=== PATIENT | female | born 1965 | race African-American/Black ===

== ENCOUNTER 2016-07-03 16:15 | Emergency (ER) | payer SELFPAY ==
[~2016-07-03] VITALS: Ht 160 cm; Wt 74.0 kg
[2016-07-03 16:18] VITALS: BP 130/85; PULSE 70; RESP 20; TEMP 97.5; O2SAT 100
[2016-07-03] MEDS ORDERED: SODIUM CHLORIDE 0.9% FLUSH 5 ML FLUSH IVF PRN (16:30)
[2016-07-03 16:38] VITALS: O2SAT 100
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
[2016-07-03] MEDS ORDERED: MORPHINE SULFATE 4 MG/ML INJ IV PUSH ONE (17:00)
[2016-07-03] MEDS ORDERED: ONDANSETRON HCL 4 MG/2 ML VIAL IV PUSH ONE (17:00)
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
[2016-07-03] MEDS ORDERED: CYCL1TAB29 PO (17:59)
[2016-07-03] MEDS ORDERED: NAPR500 PO (17:59)
[2016-07-03] MEDS ORDERED: HYDR-3533 PO (17:59)
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
== END 2016-07-03 18:41 | disposition home or self-care (01) ==
LOC: NEPC 16:15
DX: S02.5XXA Fracture of tooth (traumatic), initial encounter for closed fracture (principal); S50.811A Abrasion of right forearm, initial encounter; S50.812A Abrasion of left forearm, initial encounter; S16.1XXA Strain of muscle, fascia and tendon at neck level, initial encounter; S09.90XA Unspecified injury of head, initial encounter; S00.83XA Contusion of other part of head, initial encounter; V03.00XA Pedestrian on foot injured in collision with car, pick-up truck or van in nontraffic accident, initial encounter; Y93.9 Activity, unspecified; Y92.9 Unspecified place or not applicable; Y99.9 Unspecified external cause status
CPT/HCPCS: 70450; 70486; 71010; 72100; 72125; 73110; 96374; 96375; 99284; J2270; J2405

== ENCOUNTER 2016-10-29 19:55 | Inpatient (IN) | payer SELFPAY ==
[~2016-10-29] VITALS: Ht 160 cm; Wt 71.9 kg
[~2016-10-29 19:55] MED LIST: CYCL1TAB29 PO; HYDR-3533 PO; NAPR500 PO
[2016-10-29 20:01] VITALS: BP 134/87; PULSE 77; RESP 18; O2SAT 100
[2016-10-29 20:11] VITALS: O2SAT 100
[2016-10-29] MEDS ORDERED: SODIUM CHLOR 0.9% 1000 ML INJ 1,000 ML IV ONE (20:15)
[2016-10-29] MEDS ORDERED: NITROGLYCERIN 2% OINT 1 GM PACKET TOPICAL ONE (20:15)
[2016-10-29] MEDS ORDERED: ONDANSETRON HCL 4 MG/2 ML VIAL IV ONE (20:15)
[2016-10-29] MEDS ORDERED: PANTOPRAZOLE INJ 80 MG in SODIUM CHLORIDE 0.9% INJ 35 ML IV ONE (20:15)
--- NOTE | 2016-10-29 20:18 | PD ---
HPI Chief Complaint: Chest Pain Time Seen by Provider: 20:08 Travel History International Travel<30 days: No Contact w/Intl Traveler<30days: No Traveled to known affect area: No History of Present Illness HPI The patient is a 51 year old female who presents to the [facility] emergency department with a history of chest pain that she reports is been coming and going for the last 3 days. The patient reports that the pain is a pressure sensation that radiates to the back and underneath the right breast. The patient reports that the patient has intermittent sharp jabbing sensations associated with this. The patient reports that the pain was 6 out of 10 in severity and now is 5 out of 10 in severity. The patient reports that she has associated shortness of breath. She reports that she's had for the last few months daily vomiting that is blood-tinged. She reports that this happens 3-4 times per day. She reports that she did have 3 episodes of vomiting earlier today. She denies having any diarrhea. She denies having any blood in her stool or black or tarry stools. She reports that she does have a history of anemia thought to be related to a GI bleed that they could not find the source of in the past with endoscopy. She reports that every couple of years she requires a blood transfusion. Her last blood transfusion was a urine ago. The patient is a daily drinker of approximately 5 beers per day. The patient denies any history of hypertension, diabetes mellitus, hyperlipidemia. She does have a family history of myocardial infarction with her mother dying of an NE at 63 years of age. The patient denies any history of smoking. The patient denies taking any [id number] anti-inflammatory pain medications. The patient arrives by ambulance services and was given aspirin 162 mg by mouth 1, nitroglycerin 2 sublingual prior to arrival. The patient denies any recent fevers, cough, congestion, neck pain, abdominal pain, diarrhea, urinary symptoms , or neurologic symptoms. [facility] Past Medical History Narrative Medical The patient's past medical history is significant for intermittent anemia requiring blood transfusions every 2 years, chronic leg swelling, depression. Anemia: Yes (MULTIPLE BLOOD TRANSFUSIONS) Depression: Yes Medical other: Yes (leg swelling) ?: Not Menopausal: Yes Past Surgical History Narrative Surgical The patient's past surgical history is reportedly none. Family History Family Myocardial Infarction: Yes Social History Alcohol Use: Yes (daily 5-6 beers) Tobacco Use: No Substance Use: No Allergies-Medications (Allergen,Severity, Reaction): Coded Allergies: No Known Allergies (Unverified , 10/29/16) Reported Meds & Prescriptions Reported Meds & Active Scripts Active Review of Systems Except as stated in HPI: all other systems reviewed are Neg General / Constitutional: No: Fever Eyes: No: Visual changes HENT: No: Headaches Cardiovascular: Positive: Chest Pain or Discomfort, Dyspnea on exertion Respiratory: No: Shortness of Breath Gastrointestinal: Positive: Nausea, Vomiting, Hematemesis, Indigestion, No: Abdominal Pain, Loss of Appetite Genitourinary: No: Dysuria Musculoskeletal: No: Pain Skin: No Rash Neurologic: No: Weakness Psychiatric: No: Depression Endocrine: No: Polydipsia Hematologic/Lymphatic: No: Easy Bruising Physical Exam Narrative General: The patient is a well-developed well-nourished female in no acute distress. Head and Neck exam: Head is normocephalic atraumatic. Eyes: EOMI, pupils are equal round and reactive to light. Nose: Midline septum with pink mucous membranes Mouth: Dentition unremarkable. Moist mucus membranes. Posterior oropharynx is not erythematous. No tonsillar hypertrophy. Uvula midline. Airway patent. Neck: No palpable lymphadenopathy. No nuchal rigidity. No thyromegaly. Cardiovascular: Regular rate and rhythm without murmurs, gallops, or rubs. Lungs: Clear to auscultation bilaterally. No wheezes, rhonchi, or rales. Abdomen: Soft, without tenderness to palpation in all 4 quadrants of the abdomen. No guarding, rebound, or rigidity. Normal bowel sounds are audible. No tenderness on palpation of McBurney's point. Extremities: No clubbing or cyanosis. The patient has trace pedal edema bilateral lower extremities. 2+ pulses in all 4 extremities. No calf tenderness on palpation. Back: No costovertebral angle tenderness to palpation. Neurologic Exam: Cranial nerves 2-12 were intact on exam. Strength is 5/5 in all 4 extremities. No sensory deficits noted. Skin Exam: No rash noted. Intact skin that is warm and dry. Data Data Last Documented VS Vital Signs Date Time Temp Pulse Resp B/P Pulse Ox O2 Delivery O2 Flow Rate FiO2 10/29/16 22:27 89 18 139/90 100 Room Air Orders Electrocardiogram (10/29/16 20:08) Complete Blood Count With Diff (10/29/16 20:08) Comprehensive Metabolic Panel (10/29/16 20:08) Creatine Kinase (Cpk) (10/29/16 20:08) Ckmb (Isoenzyme) Profile (10/29/16 20:08) Troponin I (10/29/16 20:08) B-Type Natriuretic Peptide (10/29/16 20:08) Prothrombin Time / Inr (Pt) (10/29/16 20:08) Act Partial Throm Time (Ptt) (10/29/16 20:08) Lipase (10/29/16 20:08) Urinalysis - C+S If Indicated (10/29/16 20:08) Magnesium (Mg) (10/29/16 20:08) Chest, Single Ap (10/29/16 20:08) Iv Access Insert/Monitor (10/29/16 20:08) Ecg Monitoring (10/29/16 20:08) Oximetry (10/29/16 20:08) Type And Screen (10/29/16 20:08) Ed Urine Pregnancytest Poc (10/29/16 20:08) Pantoprazole Inj (Protonix Inj) (10/29/16 20:15) Pantoprazole Inj (Protonix Inj) (10/29/16 20:15) Sodium Chlor 0.9% 1000 Ml Inj (Ns 1000 M (10/29/16 20:15) Ondansetron Inj (Zofran Inj) (10/29/16 20:15) Nitroglycerin 2% Oint (Nitroglycerin 2% (10/29/16 20:15) CKMB (10/29/16 20:15) CKMB% (10/29/16 20:15) Vital Signs (Adult) Q4H (10/29/16 22:30) Activity Oob With Assistance (10/29/16 22:30) Tar Heat Exchanger Cleaner / Telemetry .CONTINUOUS (10/29/16 22:30) Diet Npo (10/30/16 Breakfast) Sodium Chloride 0.9% Flush (Ns Flush) (10/29/16 22:30) Sodium Chloride 0.9% Flush (Ns Flush) (10/30/16 09:00) Basic Metabolic Panel (Bmp) (10/30/16 06:00) Complete Blood Count With Diff (10/30/16 06:00) Creatine Kinase (Cpk) (10/30/16 08:00) Troponin I (10/30/16 08:00) Electrocardiogram (10/30/16 02:00) Electrocardiogram (10/30/16 08:00) Case Management Consult (10/29/16 22:30) Naloxone Inj (Narcan Inj) (10/29/16 22:30) Hgb & Hct (10/30/16 06:00) Hgb & Hct (10/30/16 10:00) Hgb & Hct (10/30/16 14:00) Admit Order (Ed Use Only) (10/29/16 22:35) Creatine Kinase (Cpk) (10/30/16 01:59) Troponin I (10/30/16 01:59) Labs Laboratory Tests Test 10/29/16 20:15 White Blood Count 3.5 TH/MM3 Red Blood Count 3.73 MIL/MM3 Hemoglobin 8.5 GM/DL Hematocrit 26.9 % Mean Corpuscular Volume 72.0 FL Mean Corpuscular Hemoglobin 22.7 PG Mean Corpuscular Hemoglobin 31.5 % Concent Red Cell Distribution Width 21.0 % Platelet Count 197 TH/MM3 Mean Platelet Volume 8.9 FL Neutrophils (%) (Auto) 46.4 % Lymphocytes (%) (Auto) 37.4 % Monocytes (%) (Auto) 13.1 % Eosinophils (%) (Auto) 2.0 % Basophils (%) (Auto) 1.1 % Neutrophils # (Auto) 1.6 TH/MM3 Lymphocytes # (Auto) 1.3 TH/MM3 Monocytes # (Auto) 0.5 TH/MM3 Eosinophils # (Auto) 0.1 TH/MM3 Basophils # (Auto) 0.0 TH/MM3 CBC Comment DIFF FINAL Differential Comment Prothrombin Time 11.2 SEC Prothromb Time International 1.0 RATIO Ratio Activated Partial 23.1 SEC Thromboplast Time Sodium Level 140 MEQ/L Potassium Level 3.9 MEQ/L Chloride Level 107 MEQ/L Carbon Dioxide Level 21.9 MEQ/L Anion Gap 11 MEQ/L Blood Urea Nitrogen 7 MG/DL Creatinine 0.84 MG/DL Estimat Glomerular Filtration 87 ML/MIN Rate Random Glucose 87 MG/DL Calcium Level 8.6 MG/DL Magnesium Level 2.2 MG/DL Total Bilirubin 0.2 MG/DL Aspartate Amino Transf 77 U/L (AST/SGOT) Alanine Aminotransferase 44 U/L (ALT/SGPT) Alkaline Phosphatase 47 U/L Total Creatine Kinase 163 U/L Creatine Kinase MB 1.1 NG/ML Troponin I LESS THAN 0.02 NG/ML B-Type Natriuretic Peptide 4 PG/ML Total Protein 8.2 GM/DL Albumin 3.4 GM/DL Lipase 381 U/L Blood Type AB POSITIVE Antibody Screen NEGATIVE Blood Bank Comment MDM Medical Decision Making Medical Screen Exam Complete: Yes Emergency Medical Condition: Yes Medical Record Reviewed: Yes Interpretation(s) Last Impressions Chest X-Ray 10/29/162007 Signed Impressions: Service Date/Time: Saturday, October 29, 2016 20:34 - CONCLUSION: Normal examination. Lawrence Kevin Jr., MD Differential Diagnosis Acute coronary syndrome, versus symptomatic anemia, versus pneumothorax, versus pneumonia, versus acid reflux, versus pancreatitis Narrative Course During the course of the patients emergency department visit, the patients history, examination, and differential diagnosis were reviewed with the patient. The patient had IV access obtained and blood work sent for analysis. The patient was placed on a hand plug shaper with oximetry and blood pressure monitoring. An EKG was done on arrival. The patient's EKG shows a sinus rhythm heart rate of 74, no acute ST segment changes. No ST segment elevation or depression. QRS duration is 76 ms, QTC is 411 ms. The patient was initially provided an inch of Nitropaste to the chest wall. The patient was given Zofran 4 mg IV, normal saline 1 L IV fluid bolus, Protonix 80 mg IV followed by a Protonix drip the patient was given aspirin by ambulance services prior to arrival. The patients laboratory studies were reviewed and remarkable for a white count of 3.5, hemoglobin 8.5, platelets 197 with 13.1 monocytes, CMP is remarkable for a GFR of 87, AST 77, cardiac enzymes within normal limits, BNP 4, lipase 381 , PT 11.2, PTT 23.1, urinalysis shows moderate leukocyte esterase, only 1 WBC, culture not indicated. Radiology studies were reviewed and remarkable for a chest x-ray that shows no acute abnormality. The patient was agreeable with plan to proceed with admission for hematemesis, anemia, and chest pain rule out myocardial infarction The patients results were discussed with the patient, including the plan of care. I explained that further testing and/ or monitoring is indicated based on the patients history, examination, and/ or laboratory findings. Therefore, I recommended admission for additional evaluation. The patient expressed understanding and was agreeable with this plan. The patient was admitted to the hospital in guarded condition and [facility] Physician Communication Physician Communication The patient's case was discussed with Dr. Wei did agree to admit the patient for further evaluation and treatment at this time. Diagnosis Primary Impression: Hematemesis Qualified Code: K92.0 - Hematemesis with nausea Additional Impressions: Chest pain, rule out acute myocardial infarction Anemia Qualified Code: D50.9 - Iron deficiency anemia, unspecified iron deficiency anemia type Admitting Information Admitting Physician Requests: Inez Simmons MD October 29, 2016 20:17
[2016-10-29 20:31] LABS: AUTOMATED NEUTROPHIL # 1.6 TH/MM3 (1.8-7.7); BASOPHIL % 1.1 % (0.0-2.0); EOSINOPHIL # 0.1 TH/MM3 (0-0.4); HEMATOCRIT 26.9 % (35.0-46.0); HEMO FLAGS DIFF FINAL; LYMPH % 37.4 % (9.0-44.0); LYMPHOCYTE # 1.3 TH/MM3 (1.0-4.8); MEAN CORPUSCULAR HEMOGLOBIN 22.7 PG (27.0-34.0); MEAN CORPUSCULAR HGB CONC 31.5 % (32.0-36.0); MONO % 13.1 % (0.0-8.0); NEUT % 46.4 % (16.0-70.0); PLATELET COUNT 197 TH/MM3 (150-450); RED BLOOD COUNT 3.73 MIL/MM3 (4.00-5.30); WHITE BLOOD COUNT 3.5 TH/MM3 (4.0-11.0)
[2016-10-29 20:40] LABS: APTT (PATIENT) 23.1 SEC (24.3-30.1); PROTHROMBIN TIME - PATIENT 11.2 SEC (9.8-11.6)
--- NOTE | 2016-10-29 20:50 | RADRPT ---
EXAM DATE/TIME: 10/29/2016 20:34 [facility] COMPARISON: CHEST SINGLE AP, July 03, 2016, 17:06. INDICATIONS : Right chest pain. MEDICAL HISTORY : Anemia SURGICAL HISTORY : None. ENCOUNTER: Initial ACUITY: 3 days PAIN SCORE: 1/10 LOCATION: Right chest FINDINGS: A single view of the chest demonstrates the lungs to be symmetrically aerated without evidence of mas s, infiltrate or effusion. The cardiomediastinal contours are unremarkable. Osseous structures are intact. CONCLUSION: Normal examination. Lawrence Kevin Jr., MD on October 29, 2016 at 20:48 Board Certified Radiologist. This report was verified electronically.
[2016-10-29 20:58] LABS: ALT (GPT) 44 U/L (10-53); ANION GAP 11 MEQ/L (5-15); AST (GOT) 77 U/L (15-37); BICARBONATE 21.9 MEQ/L (21.0-32.0); BLOOD UREA NITROGEN 7 MG/DL (7-18); CHLORIDE 107 MEQ/L (98-107); GLOMERULAR FILTRATION RATE 87 ML/MIN (>89); MAGNESIUM 2.2 MG/DL (1.5-2.5); POTASSIUM 3.9 MEQ/L (3.5-5.1); SODIUM (NA) 140 MEQ/L (136-145)
[2016-10-29 21:02] LABS: ALKALINE PHOSPHATASE 47 U/L (45-117); CREATINE KINASE 163 U/L (26-192); TOTAL BILIRUBIN ADULT 0.2 MG/DL (0.2-1.0)
[2016-10-29 21:14] LABS: CKMB 1.1 NG/ML (0.5-3.6)
[2016-10-29 22:27] VITALS: BP 139/90; PULSE 89; RESP 18; O2SAT 100
[2016-10-29] MEDS: PANTOPRAZOLE INJ 80 MG in SODIUM CHLORIDE 0.9% INJ 100 ML IV SCH (22:27)
[2016-10-29] MEDS ORDERED: SODIUM CHLORIDE 0.9% FLUSH 10 ML FLUSH IV FLUSH PRN (22:30)
[2016-10-29] MEDS ORDERED: NALOXONE HCL 0.4 MG/ML AMP IV PRN (22:30)
[2016-10-30] VITALS (15 sets, daily range): BP systolic 120–167; BP diastolic 72–98; PULSE 52–81; RESP 16–20; TEMP 97.9–98.7; O2SAT 95–100
[2016-10-30 02:16] LABS: AUTOMATED NEUTROPHIL # 1.4 TH/MM3 (1.8-7.7); BASOPHIL % 1.3 % (0.0-2.0); EOSINOPHIL % 1.5 % (0.0-4.0); HEMATOCRIT 25.8 % (35.0-46.0); HEMO FLAGS DIFF FINAL; LYMPHOCYTE # 1.1 TH/MM3 (1.0-4.8); MEAN CELL VOLUME 72.6 FL (80.0-100.0); MEAN CORPUSCULAR HEMOGLOBIN 22.2 PG (27.0-34.0); MEAN CORPUSCULAR HGB CONC 30.6 % (32.0-36.0); MONO % 13.7 % (0.0-8.0); NEUT % 46.5 % (16.0-70.0); PLATELET COUNT 154 TH/MM3 (150-450); RED BLOOD COUNT 3.55 MIL/MM3 (4.00-5.30)
[2016-10-30 02:29] LABS: ANION GAP 8 MEQ/L (5-15); BICARBONATE 24.9 MEQ/L (21.0-32.0); BLOOD UREA NITROGEN 7 MG/DL (7-18); CHLORIDE 109 MEQ/L (98-107); GLOMERULAR FILTRATION RATE 96 ML/MIN (>89); POTASSIUM 3.9 MEQ/L (3.5-5.1); SODIUM (NA) 142 MEQ/L (136-145)
[2016-10-30 02:33] LABS: CREATINE KINASE 140 U/L (26-192)
--- NOTE | 2016-10-30 03:37 | HHI.HP ---
[facility] No Primary Care Physician Admission Diagnosis GI Bleed, CP R/O MS Diagnoses: Chief Complaint: Shortness of breath, chest pain Travel History International Travel<30 Days: No Contact w/Intl Traveler <30 Da: No Traveled to Known Affected Are: No History of Present Illness History from patient, ER physician communication, and review of medical records. Patient is somewhat of a poor historian. At the time of my exam, patient is quite sleepy and has hard time trying to stay awake to talk to me. She also looks to be quite weak and lethargic which might be contributing to her mental status. She reports that she came to the hospital because she was having chest pain with associated shortness of breath. She stated it was going on for a while. Does not specify how long. She reports the pain was mostly midsternal, achy, and worst with exertion. Similarly shortness of breath is also worse with exertion. She denies any prior history of cardiac issues. Denies being a smoker. Not a diabetic. Upon further questioning, patient reported to the ER physician and myself that she has had prior episodes of GI bleeds. She also was reporting of vomiting dark colored fluid in the past 1 month on and off. Denies diarrhea. Denies any melena. She reports that she has had EGDs previously and that the doctors were not able to find the reason for her GI bleeds. However she denies any prior history of colonoscopies. She states that her last EGD was done 2 years ago in [place]. She does report of alcoholism of 6 beers a day. Review of Systems Except as stated in HPI: all other systems reviewed are Neg Past Family Social History Past Medical History blood transfusion 2 yrs ago syncope 2 yrs ago from anemia Past Surgical History None Reported Medications None Allergies: Coded Allergies: No Known Allergies (Unverified , 10/29/16) Family History mom with heart attack Social History Denies smoking/alcohol abuse/drug abuse. Physical Exam Vital Signs Vital Signs Date Time Temp Pulse Resp B/P Pulse Ox O2 Delivery O2 Flow Rate FiO2 10/30/16 01:48 Room Air 10/30/16 00:57 98.2 66 18 131/78 98 10/29/16 22:27 89 18 139/90 100 Room Air 10/29/16 20:11 100 10/29/16 20:01 77 18 134/87 100 Physical Exam GENERAL: This is a well-nourished, well-developed patient, in no apparent distress. SKIN: No rashes, ecchymoses or lesions. Cool and dry. HEAD: Atraumatic. Normocephalic. No temporal or scalp tenderness. EYES: No scleral icterus. No injection or drainage. ENT: Nose without bleeding, purulent drainage or septal hematoma. . Airway patent. NECK: Trachea midline. No JVD CARDIOVASCULAR: Regular rate and rhythm without murmurs, gallops, or rubs. RESPIRATORY: Clear to auscultation. Breath sounds equal bilaterally. No wheezes , rales, or rhonchi. GASTROINTESTINAL: Abdomen soft, non-tender, nondistended. No guarding. MUSCULOSKELETAL: Extremities without clubbing, cyanosis, or edema. No calf tenderness NEUROLOGICAL: Awake and alert. Motor and sensory grossly within normal limits. Normal speech. Laboratory Laboratory Tests Test 10/29/16 10/30/16 20:15 01:59 White Blood Count 3.5 3.0 Red Blood Count 3.73 3.55 Hemoglobin 8.5 7.9 Hematocrit 26.9 25.8 Mean Corpuscular Volume 72.0 72.6 Mean Corpuscular Hemoglobin 22.7 22.2 Mean Corpuscular Hemoglobin 31.5 30.6 Concent Red Cell Distribution Width 21.0 21.0 Platelet Count 197 154 Mean Platelet Volume 8.9 8.0 Neutrophils (%) (Auto) 46.4 46.5 Lymphocytes (%) (Auto) 37.4 37.0 Monocytes (%) (Auto) 13.1 13.7 Eosinophils (%) (Auto) 2.0 1.5 Basophils (%) (Auto) 1.1 1.3 Neutrophils # (Auto) 1.6 1.4 Lymphocytes # (Auto) 1.3 1.1 Monocytes # (Auto) 0.5 0.4 Eosinophils # (Auto) 0.1 0.0 Basophils # (Auto) 0.0 0.0 CBC Comment DIFF FINAL DIFF FINAL Differential Comment Prothrombin Time 11.2 Prothromb Time International 1.0 Ratio Activated Partial 23.1 Thromboplast Time Sodium Level 140 142 Potassium Level 3.9 3.9 Chloride Level 107 109 Carbon Dioxide Level 21.9 24.9 Anion Gap 11 8 Blood Urea Nitrogen 7 7 Creatinine 0.84 0.77 Estimat Glomerular Filtration 87 96 Rate Random Glucose 87 88 Calcium Level 8.6 8.4 Magnesium Level 2.2 Total Bilirubin 0.2 Aspartate Amino Transf 77 (AST/SGOT) Alanine Aminotransferase 44 (ALT/SGPT) Alkaline Phosphatase 47 Total Creatine Kinase 163 140 Creatine Kinase MB 1.1 Troponin I LESS THAN 0.02 LESS THAN 0.02 B-Type Natriuretic Peptide 4 Total Protein 8.2 Albumin 3.4 Lipase 381 Blood Type AB POSITIVE Antibody Screen NEGATIVE Blood Bank Comment Result Diagram: 10/30/1615810/30/16158 Imaging Last 48 hours Impressions Chest X-Ray 10/29/162007 Signed Impressions: Service Date/Time: Saturday, October 29, 2016 20:34 - CONCLUSION: Normal examination. Lawrence Kevin Jr., MD Assessment and Plan Assessment and Plan Impression: Symptomatic anemiawith chest pain, shortness of breath, severe drowsiness GI bleedlikely upper GI bleed. History of alcohol abuseabout 6 beers a day Plan: Patient was started on Protonix IV drip in ER. We'll continue the drip. Type and screen. Transfuse 2 units of PRBC now as patient is quite symptomatic with drowsiness, chest pains, shortness of breath. GI consult. Serial hemoglobin and hematocrit. Watch for DT. Thiamine 100 mg by mouth daily. Ativan 1 mg IV every 2 hours when necessary for withdrawal symptoms. DVT prophylaxiswith SCD. GI prophylaxis on pantoprazole. Physician Certification 2 Midnight Certification Type: Admission for Inpatient Services Order for Inpatient Services The services are ordered in accordance with Medicare regulations or non- Medicare payer requirements, as applicable. In the case of services not specified as inpatient-only, they are appropriately provided as inpatient services in accordance with the 2-midnight benchmark. Estimated LOS (days): 2 days is the estimated time the patient will need to remain in the hospital, assuming treatment plan goals are met and no additional complications. Post-Hospital Plan: Home Iris Wei MD October 30, 2016 03:37
[2016-10-30] MEDS ORDERED: LORazepam 2 MG/ML VIAL IV PUSH PRN (03:45)
[2016-10-30 07:57] LABS: BLOOD, URINE NEG (NEG); COMMENT (UR) CULT NOT INDICATED; CULTURE IF INDICATED CULT NOT INDICATED; GLUCOSE,URINE NEG (NEG); KETONE, URINE NEG (NEG); NITRITE,URINE NEG (NEG); SQUAMOUS EPITHELIAL CELL URINE 1 /hpf (0-5); URINE COLOR YELLOW (YELLW/STRAW)
[2016-10-30] MEDS: PANTOPRAZOLE INJ 80 MG in SODIUM CHLORIDE 0.9% INJ 100 ML IV SCH ×2 (08:12→17:46)
[2016-10-30] MEDS: THIAMINE HCL 100 MG TAB PO SCH (08:13)
[2016-10-30] MEDS: SODIUM CHLORIDE 0.9% FLUSH 10 ML FLUSH IV FLUSH SCH ×2 (08:13→21:00)
--- NOTE | 2016-10-30 08:50 | EKG ---
Date Performed: 10/30/2016 Time Performed: 08:19:02 PTAGE: 51 years EKG: SINUS BRADYCARDIA BORDERLINE ECG PREVIOUS TRACING : 10/30/2016 02.19 DOCTOR: Mamadou Rodríguez Interpretating Date/Time 10/30/2016 08:49:13
--- NOTE | 2016-10-30 08:53 | EKG ---
Date Performed: 10/30/2016 Time Performed: 02:19:16 PTAGE: 51 years EKG: Sinus rhythm Normal ECG PREVIOUS TRACING : 10/29/2016 20.05 DOCTOR: Mamadou Rodríguez Interpretating Date/Time 10/30/2016 08:51:57
--- NOTE | 2016-10-30 09:17 | EKG ---
Date Performed: 10/29/2016 Time Performed: 20:05:47 PTAGE: 51 years EKG: Sinus rhythm NORMAL ECG NO PREVIOUS TRACING DOCTOR: Mamadou Rodríguez Interpretating Date/Time 10/30/2016 09:14:54
[2016-10-30 10:54] LABS: HEMATOCRIT 32.5 % (35.0-46.0); REVIEW FLAG FINAL
--- NOTE | 2016-10-30 11:39 | PD.CONS ---
HPI History of Present Illness This is a 51 year old lady who presented to the ER last night with chest pains, hematemesis, and Hgb of 8.5. Last night she began experiencing chest pain, SOB , and n/v with bright red blood. the vomiting blood has been going on intermittently however for years, but never with pain. At times she vomits blood daily. She drinks 5-6 per day and has been doing so for 20 years. Denies coffee ground emesis. Denies black tarry stools or hematochezia. DEnies frequent NSAID use. never had EGD or colonoscopy. (Monica Ramirez) PFSH Past Medical History blood transfusion 2 yrs ago syncope 2 yrs ago from anemia Past Surgical History None (Monica Ramirez) Coded Allergies: No Known Allergies (Unverified , 10/29/16) Family History mom with heart attack Social History ETOH 5-6 drinks per day denies tobacco, illicit drugs (Monica Ramirez) Review of Systems Constitutional: DENIES: Fever Eyes: DENIES: Blurred vision Ears, nose, mouth, throat: DENIES: Hearing loss Respiratory: DENIES: Sputum production Cardiovascular: DENIES: Palpitations Gastrointestinal: COMPLAINS OF: Abdominal pain, Nausea, Vomiting, Hematemesis, DENIES: Black stools, Bloody stools, Constipation, Diarrhea Genitourinary: DENIES: Hematuria Musculoskeletal: DENIES: Muscle aches Integumentary: DENIES: Rash Hematologic/lymphatic: DENIES: Bruising Neurologic: DENIES: Abnormal gait Psychiatric: DENIES: Anxiety (Monica Ramirez) GI Exam Vitals I&O Vital Signs Date Time Temp Pulse Resp B/P Pulse Ox O2 Delivery O2 Flow Rate FiO2 10/30/16 09:30 98.6 52 20 158/95 100 10/30/16 09:15 98.2 52 20 154/89 99 10/30/16 09:15 100 10/30/16 08:15 58 10/30/16 08:00 97.9 64 18 154/86 96 10/30/16 06:15 98.0 69 16 123/83 99 10/30/16 06:00 98.1 67 16 120/77 95 10/30/16 04:00 Room Air 10/30/16 04:00 98.4 78 16 120/72 98 10/30/16 01:48 Room Air 10/30/16 01:33 81 10/30/16 00:57 98.2 66 18 131/78 98 10/29/16 22:27 89 18 139/90 100 Room Air 10/29/16 20:11 100 10/29/16 20:01 77 18 134/87 100 I/O 10/29/16 10/29/16 10/29/16 10/30/16 10/30/16 10/30/16 06:59 14:59 22:59 06:59 14:59 22:59 Intake Total 0 ml Output Total 400 ml Balance -400 ml Intake Oral 0 ml Output Urine Total 400 ml # Bowel Movements 0 Laboratory Test 10/29/16 10/30/16 10/30/16 10/30/16 20:15 01:59 03:40 04:28 White Blood Count 3.5 TH/MM3 3.0 TH/MM3 Red Blood Count 3.73 MIL/MM3 3.55 MIL/MM3 Hemoglobin 8.5 GM/DL 7.9 GM/DL Hematocrit 26.9 % 25.8 % Mean Corpuscular Volume 72.0 FL 72.6 FL Mean Corpuscular Hemoglobin 22.7 PG 22.2 PG Mean Corpuscular Hemoglobin 31.5 % 30.6 % Concent Red Cell Distribution Width 21.0 % 21.0 % Platelet Count 197 TH/MM3 154 TH/MM3 Mean Platelet Volume 8.9 FL 8.0 FL Neutrophils (%) (Auto) 46.4 % 46.5 % Lymphocytes (%) (Auto) 37.4 % 37.0 % Monocytes (%) (Auto) 13.1 % 13.7 % Eosinophils (%) (Auto) 2.0 % 1.5 % Basophils (%) (Auto) 1.1 % 1.3 % Neutrophils # (Auto) 1.6 TH/MM3 1.4 TH/MM3 Lymphocytes # (Auto) 1.3 TH/MM3 1.1 TH/MM3 Monocytes # (Auto) 0.5 TH/MM3 0.4 TH/MM3 Eosinophils # (Auto) 0.1 TH/MM3 0.0 TH/MM3 Basophils # (Auto) 0.0 TH/MM3 0.0 TH/MM3 CBC Comment DIFF FINAL DIFF FINAL Differential Comment Prothrombin Time 11.2 SEC Prothromb Time International 1.0 RATIO Ratio Activated Partial 23.1 SEC Thromboplast Time Sodium Level 140 MEQ/L 142 MEQ/L Potassium Level 3.9 MEQ/L 3.9 MEQ/L Chloride Level 107 MEQ/L 109 MEQ/L Carbon Dioxide Level 21.9 MEQ/L 24.9 MEQ/L Anion Gap 11 MEQ/L 8 MEQ/L Blood Urea Nitrogen 7 MG/DL 7 MG/DL Creatinine 0.84 MG/DL 0.77 MG/DL Estimat Glomerular Filtration 87 ML/MIN 96 ML/MIN Rate Random Glucose 87 MG/DL 88 MG/DL Calcium Level 8.6 MG/DL 8.4 MG/DL Magnesium Level 2.2 MG/DL Total Bilirubin 0.2 MG/DL Aspartate Amino Transf 77 U/L (AST/SGOT) Alanine Aminotransferase 44 U/L (ALT/SGPT) Alkaline Phosphatase 47 U/L Total Creatine Kinase 163 U/L 140 U/L Creatine Kinase MB 1.1 NG/ML Troponin I LESS THAN 0.02 LESS THAN 0.02 NG/ML NG/ML B-Type Natriuretic Peptide 4 PG/ML Total Protein 8.2 GM/DL Albumin 3.4 GM/DL Lipase 381 U/L Blood Type AB POSITIVE AB POSITIVE AB POSITIVE Antibody Screen NEGATIVE Blood Bank Comment Crossmatch Leukocyte-Reduced Red Blood Cells Test 10/30/16 10/30/16 06:00 10:31 Urine Color YELLOW Urine Turbidity CLEAR Urine pH 5.0 Urine Specific [place] 1.023 Urine Protein NEG mg/dL Urine Glucose (UA) NEG mg/dL Urine Ketones NEG mg/dL Urine Occult Blood NEG Urine Nitrite NEG Urine Bilirubin NEG Urine Urobilinogen LESS THAN 2.0 MG/DL Urine Leukocyte Esterase MOD Urine RBC LESS THAN 1 /hpf Urine WBC 1 /hpf Urine Squamous Epithelial 1 /hpf Cells Microscopic Urinalysis Comment CULT NOT INDICATED Hemoglobin 10.4 GM/DL Hematocrit 32.5 % Physical Examination HEENT: EOMI; normocephalic; atraumatic; no jaundice. CHEST: CTA CARDIAC: RRR ABDOMEN: Soft, nondistended, mild upper abdominal TTP; no hepatosplenomegaly; bowel sounds are present in all four quadrants. EXTREMITIES: No clubbing, cyanosis, or edema. SKIN: Normal; no rash; no jaundice. [employer]: No focal deficits; alert and oriented times three. (Monica Ramirez) Assessment and Plan Plan ASSESSMENT - hematemesis - Has had intermittently for years. Bright red blood. - anemia - HH 8.5 26.9 on admission. likely secondary to above. Denies tarry stool. Has improved, sp 2 x prbc. PLAN - EGD today - obtain consents - NPO - monitor HH - transfuse as necessary - ETOH cessation - further recommendations to follow procedure results This pt seen by myself and DR Dyson and this note is written on his behalf ( Monica Ramirez) Physician Comments Seen and examined, plan as above, will proceed with EGD today. Risk, benefits and complications explained and she agreed to proceed. Further recommendations to follow pending findings. (Robert Dyson MD) Monica Ramirez October 30, 2016 11:39 Robert Dyson MD October 30, 2016 12:42
[2016-10-30 12:20] LABS: CREATINE KINASE 137 U/L (26-192)
--- NOTE | 2016-10-30 12:39 | GIPROC ---
[facility] [address] [facility]. [facility], [address] EGD PROCEDURE REPORT EXAM DATE: 10/30/2016 PATIENT NAME: Adrienne Coreas MR #: [id number] BIRTHDATE: 1965 ATTENDING: Robert Dyson MD ORDER #: [id number] SANITARY AIDE: Magan Tang Pat STATUS: inpatient INDICATIONS: The patient is a 51 yr old female here for an EGD due to hematemesis PROCEDURE PERFORMED: EGD w/ biopsy EGD w/ dilation of esophagus via guidewire MEDICATIONS: None and Per Anesthesia. TOPICAL ANESTHETIC: none CONSENT: The patient understands the risks and benefits of the procedure and understands that these risks include, but are not limited to: sedation, allergic reaction, infection, perforation and/or bleeding. Alternative means of evaluation and treatment include, among others: physical exam, x-rays, and/or surgical intervention. The patient elects to proceed with this endoscopic procedure. medical equipment was checked for proper function. Hand hygiene and appropriate measures for infection prevention was taken. After the risks, benefits and alternatives of the procedure were thoroughly explained, Informed consent was verified, confirmed and timeout was successfully executed by the treatment team. The patient was anesthetized with topical anesthesia and the Pentax [id number] and [id number] endoscope was introduced through the mouth and advanced to the second portion of the duodenum. Retroflexion was performed and was normal The gastroscope was then slowly withdrawn and removed. ESOPHAGUS: There was a short benign appearing stricture in the proximal esophagus and distal esophagus. The stricture was not traversable. The stricture was dilated using a 8mm (24Fr) savary dilator over guidewire. Following this dilation, there was no change in the appearance of the stricture. The stricture was dilated using a 10mm (30Fr) savary dilator over guidewire. Following this dilation, there was a small mucosal rent. The stricture was dilated using a 12mm (36Fr) savary dilator over guidewire. Following this dilation, there was a medium sized mucosal rent. STOMACH: The stomach otherwise appeared normal. DUODENUM: Abnormal mucosa was found in the 2nd part of the duodenum. The mucosa was edematous. Multiple biopsies were performed using cold forceps. Sample sent for histology. ADVERSE EVENTS: There were no complications. IMPRESSIONS: 1. There was 2 strictures in the proximal esophagus and distal esophagus; The stricture was dilated using a 8mm (24Fr) savary dilator over guidewire.; Following this dilation, there was no change in the appearance of the stricture; The stricture was dilated using a 10mm (30Fr) savary dilator over guidewire.; Following this dilation, there was a small mucosal rent; The stricture was dilated using a 12mm (36Fr) savary dilator over guidewire.; Following this dilation, there was a medium sized mucosal rent 2. The stomach otherwise appeared normal 3. Abnormal mucosa was found in the 2nd part of the duodenum; The mucosa was edematous; multiple biopsies were performed 4. Retroflexion was performed and was normal RECOMMENDATIONS: 1. Await biopsy results. Biopsy results will not be ready for 7-10 days. If you don't hear from us in two weeks, call our office for biopsy results. 2. Dilatations PRN PATIENT CONDITION: stable DISPOSITION: Observation REPEAT EXAM: Return as needed for EGD Robert Dyson MD eSigned: Robert Dyson MD 10/30/2016 12:39 PM cc: PATIENT NAME: Adrienne Coreas MR#: [id number]
[2016-10-30 12:55] LABS: FERRITIN 5 NG/ML (8-252); TRANSFERRIN IRON PROFILE 370 MG/DL (200-360)
[2016-10-30] MEDS ORDERED: PROPOFOL 200 MG/20 ML AMP IV ONE (12:55)
[2016-10-30 14:16] LABS: AMPHETAMINE, URINE NEG (NEG); BARBITURATES, URINE NEG (NEG); COCAINE, URINE NEG (NEG)
[2016-10-30 15:24] LABS: HEMATOCRIT 33.8 % (35.0-46.0); REVIEW FLAG FINAL
[2016-10-30] MEDS ORDERED: IRON SUCROSE INJ 200 MG in SODIUM CHLORIDE 0.9% INJ 100 ML IV ONE (17:00)
[2016-10-30 20:49] LABS: HEMATOCRIT 34.4 % (35.0-46.0); REVIEW FLAG FINAL
[2016-10-30] MEDS: ALUMINUM/MAGNESIUM/SIMETH 30 ML CUP PO SCH (21:00)
[2016-10-31] VITALS: BP 170/92; PULSE 54; RESP 20; TEMP 98.6; O2SAT 98
[2016-10-31 04:00] VITALS: BP 160/98; PULSE 53; RESP 20; TEMP 98.3; O2SAT 98
[2016-10-31] MEDS: PANTOPRAZOLE INJ 80 MG in SODIUM CHLORIDE 0.9% INJ 100 ML IV SCH (04:23)
[2016-10-31 08:00] VITALS: BP 181/91; PULSE 52; RESP 20; TEMP 98.3; O2SAT 98
[2016-10-31] MEDS: ALUMINUM/MAGNESIUM/SIMETH 30 ML CUP PO SCH (09:30)
[2016-10-31] MEDS: THIAMINE HCL 100 MG TAB PO SCH (09:34)
[2016-10-31] MEDS: SODIUM CHLORIDE 0.9% FLUSH 10 ML FLUSH IV FLUSH SCH (09:34)
[2016-10-31 10:54] LABS: AUTOMATED NEUTROPHIL # 3.2 TH/MM3 (1.8-7.7); BASOPHIL % 0.5 % (0.0-2.0); EOSINOPHIL # 0.1 TH/MM3 (0-0.4); EOSINOPHIL % 3.5 % (0.0-4.0); HEMATOCRIT 35.2 % (35.0-46.0); HEMO FLAGS DIFF FINAL; LYMPH % 11.4 % (9.0-44.0); LYMPHOCYTE # 0.5 TH/MM3 (1.0-4.8); MEAN CORPUSCULAR HEMOGLOBIN 23.8 PG (27.0-34.0); MONO % 8.7 % (0.0-8.0); NEUT % 75.9 % (16.0-70.0); PLATELET COUNT 166 TH/MM3 (150-450); RED BLOOD COUNT 4.89 MIL/MM3 (4.00-5.30); RED CELL DISTRIBUTION WIDTH 20.6 % (11.6-17.2); WHITE BLOOD COUNT 4.3 TH/MM3 (4.0-11.0)
[2016-10-31 12:00] VITALS: BP 157/99; PULSE 53; RESP 20; TEMP 98.4; O2SAT 99
--- NOTE | 2016-10-31 12:54 | HHI.PR ---
Subjective Remarks patient feeling much much better, stronger no difficulty swallowing or pain swallowing wanting to go home Objective Vitals Vital Signs Date Time Temp Pulse Resp B/P Pulse Ox O2 Delivery O2 Flow Rate FiO2 10/31/16 12:00 98.4 53 20 157/99 99 10/31/16 08:00 98.3 52 20 181/91 98 10/31/16 07:30 Room Air 10/31/16 04:00 98.3 53 20 160/98 98 10/31/16 00:00 98.6 54 20 170/92 98 10/30/16 20:00 98.2 57 17 155/79 98 10/30/16 19:45 55 10/30/16 19:45 Room Air 10/30/16 16:00 98.4 58 18 167/96 98 10/30/16 16:00 Room Air 10/30/16 12:55 76 18 153/93 99 I/O 10/30/16 10/30/16 10/30/16 10/31/16 10/31/16 10/31/16 07:00 15:00 23:00 07:00 15:00 23:00 Intake Total 0 ml 200 ml 84 ml 289 ml Output Total 400 ml Balance -400 ml 200 ml 84 ml 289 ml Intake Oral 0 ml 220 ml IV Total 84 ml 69 ml Other 200 ml Output Urine Total 400 ml # Voids 1 2 # Bowel Movements 0 0 Result Diagram: 10/31/16 1038 10/30/16 0159 Imaging Last Impressions Chest X-Ray 10/29/162007 Signed Impressions: Service Date/Time: Saturday, October 29, 2016 20:34 - CONCLUSION: Normal examination. Lawrence Kevin Jr., MD Objective Remarks awake and alert, NAD anicteric lungs clear reguylar rhythm abdomen- soft, good bowel sounds extremities no edema neuro exam- unremarkable Procedures 10/30- EGD- findings with esophaigitis and esophageal stricture S/P dilatation A/P Assessment and Plan 51 years old female Symptomatic anemiawith chest pain, shortness of breath, severe drowsiness- symptoms improved. S/P 2 unit RBC transfusion S/P EGD with esophagitis and esophageal stricture S/P eso dilation and biopsy. change to po PPI Severe Iron defeiciency- S/P IV infusion therapy. start patient on po Iron 325 mg po bid on DC some elevated readings- no history of hypertension. Advised to ff up with PCP for monitoring DC home today with PCP ff up- patient states she just got work and will have insurance through work and will set up with one OP ff up with GI Diet regular- advise on sitting up after meals, Avoid NSAIds, NO alcohol Activity as tolerated weight bearing. no strenuous activity Meds- Protonix 40 mg po daily. Iron sulfate 325 mg po bid Tru Solano MD Oct 31, 2016 12:54
[2016-10-31] MEDS ORDERED: FERR1TAB36 PO (12:57)
[2016-10-31] MEDS ORDERED: PROT40TA PO (12:57)
[2016-10-31 14:05] VITALS: PULSE 51
== END 2016-10-31 14:35 | disposition home or self-care (01) | DRG 812 ==
LOC: NEPE 19:55 → INTOOBSV 22:37 → NEDA 22:37 → N04B 10-30 00:36 → OBSVTOIN 10-30 03:46
PROVIDERS: ADMIT Internal Medicine; ATTEND Internal Medicine
PROC: 0D738ZZ Dilation of Lower Esophagus, Via Natural or Artificial Opening Endoscopic (ICD-10-PCS; 2016-10-30)
PROC: 0D718ZZ Dilation of Upper Esophagus, Via Natural or Artificial Opening Endoscopic (ICD-10-PCS; 2016-10-30)
PROC: 0DB98ZX Excision of Duodenum, Via Natural or Artificial Opening Endoscopic, Diagnostic (ICD-10-PCS; 2016-10-30)
PROC: 30233N1 Transfusion of Nonautologous Red Blood Cells into Peripheral Vein, Percutaneous Approach (ICD-10-PCS; principal; 2016-10-30 12:05)
DX: D50.0 Iron deficiency anemia secondary to blood loss (chronic) (principal); K92.0 Hematemesis; F32.9 Major depressive disorder, single episode, unspecified; K22.2 Esophageal obstruction; F10.10 Alcohol abuse, uncomplicated; K20.9 Esophagitis, unspecified; Z82.49 Family history of ischemic heart disease and other diseases of the circulatory system
CPT/HCPCS: 36430; 71010; 80048; 80053; 80307; 81001; 82550; 82552; 82607; 82728; 82746; 83540; 83550; 83690; 83735; 83880; 84484; 84703; 85014; 85018; 85025; 85610; 85730; 86850; 86900; 86901; 86920; 88305; 93005; 96374; 96375; C1769; C9113; J1756; J2060; J2405; J7030; P9016